=== PATIENT | male | born 1995 | race Caucasian/White ===

== ENCOUNTER 2019-09-08 20:11 | Emergency (ER) | payer OTHER ==
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
[2019-09-08 20:46] VITALS: TEMP 98.8; BMI 29.7
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
[2019-09-08] MEDS ORDERED: IBUPROFEN 600 MG TABLET (FP) PO ONE ×2 (21:14→22:13)
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
[2019-09-08 22:14] LABS: EPI CELLS 0.8 /HPF (0-5/HPF); HYALINE CASTS 9 /lpf (0-8); URINE APPEARANCE CLEAR; URINE BACTERIA 1.2 /hpf (NEGATIVE); URINE BILIRUBIN NEGATIVE (NEGATIVE); URINE COLOR YELLOW; URINE GLUCOSE (UA) NEGATIVE (NEGATIVE); URINE KETONE NEGATIVE (NEGATIVE); URINE LEUK ESTERASE NEGATIVE (NEGATIVE); URINE NITRITE NEGATIVE (NEGATIVE); URINE PROTEIN 1+ (NEGATIVE); URINE RBC 6 /hpf (0-4); URINE WBC 2 /hpf (0-5)
[2019-09-08 23:09] VITALS: BP 119/74; PULSE 64
== END 2019-09-08 23:16 | disposition home or self-care (01) ==
LOC: JER 20:11
PROC: 2W3CX1Z Immobilization of Right Lower Arm using Splint (ICD-10-PCS; principal; 2019-09-08)
PROC: 2W3VXYZ Immobilization of Left Toe using Other Device (ICD-10-PCS; 2019-09-08)
DX: S52.591A Other fractures of lower end of right radius, initial encounter for closed fracture (principal); S92.422A Displaced fracture of distal phalanx of left great toe, initial encounter for closed fracture; V03.10XA Pedestrian on foot injured in collision with car, pick-up truck or van in traffic accident, initial encounter; Y92.414 Local residential or business street as the place of occurrence of the external cause; Y93.01 Activity, walking, marching and hiking; Y99.8 Other external cause status
CPT/HCPCS: 72170-TC-FY; 73110-TC-RT-FY; 73130-TC-RT-FY; 73630-TC-LT; 81003; 99285-25